=== PATIENT | female | born 1990 | race Caucasian/White ===

== ENCOUNTER 2020-01-30 13:39 | Outpatient (CLI) | payer SELFPAY ==
--- NOTE | 2020-01-30 | DI.CT_ITS ---
EXAM: CT SINUS WO CLINICAL HISTORY: NASAL POLYP,J33.8. TECHNIQUE: Imaging Protocol: Axial computed tomography images with coronal and sagittal reformatted images were created and reviewed. No IV Contrast COMPARISON: No exams were available for comparison FINDINGS: MAXILLARY SINUSES: There is mucosal thickening in both maxillary sinuses, somewhat more so on the right side, not associ ated with the fluid level nor bone dehiscence. Small defect in the medial wall of the right maxillary sinus at the middle turbinate level is possibl y related to prior endoscopic surgery creation. There is no evidence of surgical defect in the media l wall of the left maxillary sinus. OSTIOMEATAL UNITS: Left ostiomeatal unit is patent. Right ostiomeatal unit is visualized but partial ly opacified. ETHMOIDAL AIR CELLS: Mild disease. No prominent opacification. SPHENOID SINUSES: Well aerated. No mucosal thickening. FRONTAL SINUSES: Mild mucosal thickening evident in the left frontal sinus. NASAL SEPTUM AND TURBINATES:Nasal septum is relatively midline. However, there is a right-sided nasa l septal spur. There is no evidence of kylah bullosa. IMPRESSION: 1. There is mucosal disease in both maxillary sinuses, more so on the right side where there also chris ears to be a small probable postsurgical defect in the medial wall. No true bone dehiscence. 2. Mild mucosal thickening left frontal sinus and left frontoethmoidal recess. RADIATION DOSE DELIVERED: 108.99mGy.cm Total DLP 108.99mGy.cm Total DLP DATA REPOSITORY: All CT scans at this facility are submitted to the National Radiology Data Registry (NRDR) Dose Index Registry (DIR) with the [employer] ([employer]). RADIATION OPTIMIZATION: All CT scans at this facility use at least one of these dose optimization te chniques: automated exposure control; mA and/or kV adjustment per patient size (includes targeted exa ms where dose is matched to clinical indication); or iterative reconstruction.
== END 2020-01-30 13:59 ==
PROVIDERS: Visit Provider Otolaryngology Otolaryngology/Facial Plastic Surgery
DX: J33.8 Other polyp of sinus (principal); J32.0 Chronic maxillary sinusitis
CPT/HCPCS: 70486